=== PATIENT | male | born 1930 | race Caucasian/White ===

== ENCOUNTER 2018-05-11 13:00 | Outpatient (RCR) | payer MEDICARE, BC ==
[2013-01-03 13:35] VITALS: BP 157/67
[~2018-05-11 13:00] MED LIST: ADVAIR DISKUS 51 DSK IH; ALLOPURINOL100 MG PO; AVODART 0.5MG0.5 MG PO; CIPRO 500MG TA500 MG PO; DILTIAZEM240 M1 PO; FLOMAX0.4 MG PO; FLONASE0.05 MG/AC NS; MUCINEX 60600 MG/TA1 PO; SPIRIVA HANDIH18 MCG IH; ST. JOSEPH81 M2 PO; VENTOLIN0.09 MG IH; ZOCOR 10MG10 MG PO; [UNRECOGNIZED DRUG - OTHER] OP
== END 2018-05-11 13:30 | disposition home or self-care (01) ==
LOC: PT 13:00
DX: M25.561 Pain in right knee (principal); G89.29 Other chronic pain; M23.51 Chronic instability of knee, right knee
CPT/HCPCS: G8978-GP; G8979-GP

== ENCOUNTER → 2019-02-02 | Day surgery (SDC) | payer MEDICARE, BC ==
[2013-01-03 13:35] VITALS: BP 157/67
== END | disposition home or self-care (01) ==
LOC: MSO 10:23
DX: H25.12 Age-related nuclear cataract, left eye (principal); Z79.01 Long term (current) use of anticoagulants; Z79.899 Other long term (current) drug therapy; Z79.82 Long term (current) use of aspirin; Z95.0 Presence of cardiac pacemaker; Z95.828 Presence of other vascular implants and grafts; I48.91 Unspecified atrial fibrillation; J44.9 Chronic obstructive pulmonary disease, unspecified; Z87.891 Personal history of nicotine dependence
CPT/HCPCS: 00142; J0171; J2250; J2370; J3010; V2632

== ENCOUNTER 2019-03-18 12:50 | Inpatient (IN) | payer MEDICARE, BC ==
[~2019-03-18] VITALS: Ht 180.3 cm; Wt 76.3 kg
[2019-03-18] MEDS ORDERED: ASCORBIC ACID500 M3 PO (13:23)
[2019-03-18] MEDS ORDERED: CARVEDILOL12.5 MG PO (13:24)
[2019-03-18] MEDS ORDERED: ASPIR LOW81 MG PO (13:24)
[2019-03-18] MEDS ORDERED: FERROUS GLUCON240 MG PO (13:25)
[2019-03-18] MEDS ORDERED: PHARMASSURE FO0.4 MG PO (13:26)
[2019-03-18] MEDS ORDERED: NORCO 325 MG-51 TA1 PO (13:27)
[2019-03-18] MEDS ORDERED: BACTRIM DS TAB1 EACH PO (13:28)
[2019-03-18] MEDS ORDERED: NORVASC 10MG10 MG PO (13:29)
[2019-03-18] MEDS ORDERED: COUMADIN 22.5 MG/TAB PO (13:29)
[2019-03-18] MEDS ORDERED: OXYCODONE HYDROC5 M1 PO (13:30)
[2019-03-18 13:33] VITALS: BP 119/58
[2019-03-18 15:28] VITALS: BP 106/61
[2019-03-18 17:05] LABS: HEMATOCRIT 34.6 % (42.0-52.0); MEAN CELL VOLUME 96 fl (78-100); MEAN CORPUSCULAR HEMOGLOBIN 31 pg (27-31); MEAN CORPUSCULAR HGB CONC 32 g/dL (33-37); MEAN PLATELET VOLUME 11.8 fl (7.4-10.4); PLATELET COUNT 147 K/mm3 (130-400); RED BLOOD COUNT 3.61 M/mm3 (4.20-5.60); RED CELL DISTRIBUTION WIDTH 15.1 % (11.5-14.5); WHITE BLOOD COUNT 12.6 K/mm3 (4.8-10.8)
[2019-03-18 17:09] LABS: ALBUMIN 3.3 g/dL (3.4-4.8)
[2019-03-18 17:10] LABS: POTASSIUM 5.3 mmol/L (3.5-5.1)
[2019-03-18 17:11] LABS: CALCIUM 8.6 mg/dL (8.3-10.5)
[2019-03-18 17:12] LABS: TOTAL PROTEIN 6.8 g/dL (6.2-8.1)
[2019-03-18 17:14] LABS: TOTAL BILIRUBIN 0.6 mg/dL (0.2-1.2)
[2019-03-18 17:24] LABS: LYMPHOCYTE 7 % (20-51); MONOCYTE 31 % (3-10); NEUTROPHILS 61 % (42-75)
[2019-03-18 18:19] LABS: D-DIMER 1.61 mg/L FEU (0.15-0.50)
[2019-03-18 18:40] VITALS: BP 109/65
[2019-03-19 06:06] VITALS: BP 122/61
[2019-03-19 07:28] LABS: HEMATOCRIT 34.4 % (42.0-52.0); HEMOGLOBIN 10.8 g/dL (13.5-18.0); MEAN CELL VOLUME 95 fl (78-100); MEAN CORPUSCULAR HEMOGLOBIN 30 pg (27-31); MEAN CORPUSCULAR HGB CONC 31 g/dL (33-37); MEAN PLATELET VOLUME 10.9 fl (7.4-10.4); PLATELET COUNT 151 K/mm3 (130-400); RED BLOOD COUNT 3.61 M/mm3 (4.20-5.60); RED CELL DISTRIBUTION WIDTH 15.2 % (11.5-14.5); WHITE BLOOD COUNT 10.4 K/mm3 (4.8-10.8)
[2019-03-19 07:38] LABS: ALBUMIN 3.3 g/dL (3.4-4.8)
[2019-03-19 07:39] LABS: POTASSIUM 4.8 mmol/L (3.5-5.1)
[2019-03-19 07:40] LABS: CALCIUM 8.7 mg/dL (8.3-10.5)
[2019-03-19 07:41] LABS: TOTAL PROTEIN 6.9 g/dL (6.2-8.1)
[2019-03-19 07:43] LABS: TOTAL BILIRUBIN 0.9 mg/dL (0.2-1.2)
[2019-03-19 07:48] LABS: LYMPHOCYTE 10 % (20-51); MONOCYTE 15 % (3-10); NEUTROPHILS 74 % (42-75)
[2019-03-19 08:11] LABS: URINE APPEARANCE CLEAR; URINE BILIRUBIN NEGATIVE (NEGATIVE); URINE BLOOD 50 ery/uL (NEGATIVE); URINE COLOR YELLOW; URINE GLUCOSE NEGATIVE (NEGATIVE); URINE KETONE NEGATIVE (NEGATIVE); URINE LEUKOCYTE ESTERASE NEGATIVE (NEGATIVE); URINE NITRATE NEGATIVE (NEGATIVE); URINE PROTEIN(semi-quant) TRACE mg/dL (NEGATIVE); URINE UROBILINOGEN NORMAL (NORMAL); URINE WBC 0-1 /hpf (0-3)
[2019-03-19 18:37] VITALS: BP 110/62
[2019-03-20 06:12] VITALS: BP 107/58
[2019-03-20 09:09] LABS: POTASSIUM 4.7 mmol/L (3.5-5.1)
[2019-03-20 09:11] LABS: CALCIUM 8.7 mg/dL (8.3-10.5)
[2019-03-20 09:23] LABS: PROTHROMBIN TIME 29.6 SECONDS (9.0-12.0)
[2019-03-20 18:44] VITALS: BP 104/64
[2019-03-21 06:01] VITALS: BP 119/58
[2019-03-21 07:48] LABS: PROTHROMBIN TIME 35.1 SECONDS (9.0-12.0)
[2019-03-21 18:55] VITALS: BP 111/73
[2019-03-22 06:16] VITALS: BP 126/73
[2019-03-22 07:09] LABS: HEMATOCRIT 34.6 % (42.0-52.0); MEAN CELL VOLUME 96 fl (78-100); MEAN CORPUSCULAR HEMOGLOBIN 31 pg (27-31); MEAN CORPUSCULAR HGB CONC 32 g/dL (33-37); MEAN PLATELET VOLUME 11.2 fl (7.4-10.4); PLATELET COUNT 206 K/mm3 (130-400)
[2019-03-22 07:43] LABS: LYMPHOCYTE 18 % (20-51); MONOCYTE 29 % (3-10); NEUTROPHILS 51 % (42-75); POLYCHROMASIA 1+
[2019-03-22 17:58] VITALS: BP 129/54
[2019-03-23 06:20] VITALS: BP 126/64
[2019-03-23 12:16] LABS: PROTHROMBIN TIME 29.5 SECONDS (9.0-12.0)
[2019-03-23 18:14] VITALS: BP 115/57
[2019-03-24 06:22] VITALS: BP 129/68
[2019-03-24 06:40] LABS: HEMATOCRIT 33.2 % (42.0-52.0); HEMOGLOBIN 10.4 g/dL (13.5-18.0); MEAN CELL VOLUME 97 fl (78-100); MEAN CORPUSCULAR HEMOGLOBIN 30 pg (27-31); MEAN CORPUSCULAR HGB CONC 31 g/dL (33-37); MEAN PLATELET VOLUME 10.9 fl (7.4-10.4); PLATELET COUNT 223 K/mm3 (130-400); RED BLOOD COUNT 3.44 M/mm3 (4.20-5.60); RED CELL DISTRIBUTION WIDTH 14.9 % (11.5-14.5); WHITE BLOOD COUNT 7.8 K/mm3 (4.8-10.8)
[2019-03-24 06:48] LABS: POTASSIUM 4.1 mmol/L (3.5-5.1)
[2019-03-24 06:49] LABS: CALCIUM 8.4 mg/dL (8.3-10.5); PROTHROMBIN TIME 22.8 SECONDS (9.0-12.0)
[2019-03-24 06:50] LABS: TOTAL PROTEIN 6.7 g/dL (6.2-8.1)
[2019-03-24 06:52] LABS: TOTAL BILIRUBIN 0.8 mg/dL (0.2-1.2)
[2019-03-24 06:54] LABS: BAND 1 % (0-10); LYMPHOCYTE 22 % (20-51); MONOCYTE 19 % (3-10); NEUTROPHILS 57 % (42-75)
[2019-03-24 18:22] VITALS: BP 109/59
[2019-03-25 06:22] VITALS: BP 103/56
[2019-03-25 19:08] VITALS: BP 97/53
[2019-03-26 06:16] VITALS: BP 143/69
[2019-03-26 09:06] LABS: CALCIUM 8.6 mg/dL (8.3-10.5)
[2019-03-26 10:44] LABS: PROTHROMBIN TIME 22.2 SECONDS (9.0-12.0)
[2019-03-26 18:20] VITALS: BP 108/64
[2019-03-27 06:33] VITALS: BP 115/54
[2019-03-27 19:47] VITALS: BP 109/67
[2019-03-28 06:20] VITALS: BP 105/59
[2019-03-28 17:46] VITALS: BP 111/55
[2019-03-29 06:22] VITALS: BP 121/63
[2019-03-29 09:06] LABS: PROTHROMBIN TIME 27.6 SECONDS (9.0-12.0)
[2019-03-29 18:31] VITALS: BP 104/55
[2019-03-30 06:21] VITALS: BP 109/61
[2019-03-30 19:00] VITALS: BP 110/47
[2019-03-31 06:13] LABS: PROTHROMBIN TIME 27.5 SECONDS (9.0-12.0)
[2019-03-31 06:25] VITALS: BP 121/68
[2019-03-31 17:07] VITALS: BP 113/63
[2019-03-31 18:06] VITALS: BP 93/57
[2019-04-01 06:32] VITALS: BP 115/53
[2019-04-01 13:27] LABS: HEMATOCRIT 36.9 % (42.0-52.0); HEMOGLOBIN 11.1 g/dL (13.5-18.0); MEAN CELL VOLUME 98 fl (78-100); MEAN CORPUSCULAR HEMOGLOBIN 30 pg (27-31); MEAN CORPUSCULAR HGB CONC 30 g/dL (33-37); MEAN PLATELET VOLUME 11.2 fl (7.4-10.4); PLATELET COUNT 237 K/mm3 (130-400); RED BLOOD COUNT 3.76 M/mm3 (4.20-5.60); RED CELL DISTRIBUTION WIDTH 15.4 % (11.5-14.5); WHITE BLOOD COUNT 6.4 K/mm3 (4.8-10.8)
[2019-04-01 13:32] LABS: CALCIUM 8.8 mg/dL (8.3-10.5)
[2019-04-01 14:48] LABS: LYMPHOCYTE 17 % (20-51); MONOCYTE 13 % (3-10); NEUTROPHILS 69 % (42-75)
[2019-04-01 17:21] VITALS: BP 115/70
[2019-04-01 18:25] VITALS: BP 121/69
[2019-04-02 06:25] VITALS: BP 119/74
[2019-04-02 18:04] VITALS: BP 123/77
[2019-04-03 06:18] VITALS: BP 102/63
[2019-04-03 17:05] VITALS: BP 126/70
[2019-04-04 06:19] VITALS: BP 110/62
[2019-04-04 17:11] VITALS: BP 128/51
[2019-04-05 06:41] VITALS: BP 105/60
[2019-04-05 14:16] LABS: HEMATOCRIT 38.1 % (42.0-52.0); HEMOGLOBIN 11.5 g/dL (13.5-18.0); MEAN CELL VOLUME 98 fl (78-100); MEAN CORPUSCULAR HEMOGLOBIN 30 pg (27-31); MEAN CORPUSCULAR HGB CONC 30 g/dL (33-37); MEAN PLATELET VOLUME 10.5 fl (7.4-10.4); PLATELET COUNT 242 K/mm3 (130-400); RED BLOOD COUNT 3.89 M/mm3 (4.20-5.60); RED CELL DISTRIBUTION WIDTH 15.8 % (11.5-14.5); WHITE BLOOD COUNT 5.5 K/mm3 (4.8-10.8)
[2019-04-05 14:21] LABS: POTASSIUM 4.1 mmol/L (3.5-5.1)
[2019-04-05 14:22] LABS: CALCIUM 8.7 mg/dL (8.3-10.5)
[2019-04-05 14:54] LABS: LYMPHOCYTE 30 % (20-51); MONOCYTE 20 % (3-10); NEUTROPHILS 50 % (42-75)
[2019-04-05 14:55] LABS: HYPOCHROMIA 2+
[2019-04-05 18:06] VITALS: BP 105/50
[2019-04-06 06:11] VITALS: BP 118/68
[2019-04-06 10:27] LABS: PROTHROMBIN TIME 25.7 SECONDS (9.0-12.0)
[2019-04-06 19:14] VITALS: BP 111/85
[2019-04-07 06:08] VITALS: BP 120/67
[2019-04-07 18:22] VITALS: BP 123/68
[2019-04-08 06:23] VITALS: BP 117/65
[2019-04-08 18:45] VITALS: BP 104/64
[2019-04-09 06:25] VITALS: BP 111/85
[2019-04-09 18:05] VITALS: BP 114/67
[2019-04-10 06:27] VITALS: BP 118/73
[2019-04-10 19:09] VITALS: BP 139/72
[2019-04-11 06:24] VITALS: BP 114/57
[2019-04-11 18:32] VITALS: BP 101/65
[2019-04-12 06:26] VITALS: BP 123/67
[2019-04-12 17:57] VITALS: BP 101/52
[2019-04-13 06:16] VITALS: BP 112/61
[2019-04-13 08:02] LABS: POTASSIUM 3.7 mmol/L (3.5-5.1)
[2019-04-13 08:04] LABS: CALCIUM 8.8 mg/dL (8.3-10.5)
[2019-04-13 08:25] LABS: PROTHROMBIN TIME 23.6 SECONDS (9.0-12.0)
[2019-04-13] MEDS ORDERED: ACETAMINOPHEN325 M1 PO (08:44)
[2019-04-13] MEDS ORDERED: NORCO 325 MG-51 TA1 PO (08:48)
[2019-04-13] MEDS ORDERED: DOCUSATE SOD100 MG PO (08:49)
[2019-04-13] MEDS ORDERED: FUROSEMIDE40 MG PO (08:56)
[2019-04-13 08:57] VITALS: BP 107/64; BP 170/64
[2019-04-13] MEDS ORDERED: COUMADIN 1MG1 MG/TAB PO (09:02)
== END 2019-04-13 14:45 | disposition home health service (06) | DRG 559 ==
LOC: MED/SURG 12:50
PROVIDERS: Family Medicine; Nurse Practitioner; Nurse Practitioner Family; Physician Assistant; ADMIT Nurse Practitioner Primary Care
DX: Z47.1 Aftercare following joint replacement surgery (principal); I50.31 Acute diastolic (congestive) heart failure; R53.81 Other malaise; Z96.651 Presence of right artificial knee joint; J44.9 Chronic obstructive pulmonary disease, unspecified; I48.91 Unspecified atrial fibrillation; Z95.0 Presence of cardiac pacemaker; Z79.82 Long term (current) use of aspirin; Z79.01 Long term (current) use of anticoagulants; Z87.891 Personal history of nicotine dependence; E87.70 Fluid overload, unspecified; I50.9 Heart failure, unspecified; I11.0 Hypertensive heart disease with heart failure
CPT/HCPCS: J1940

== ENCOUNTER → 2019-05-16 | Outpatient (CLI) | payer MEDICARE, BC ==
[2019-04-13 08:57] VITALS: BP 107/64
[~2019-05-16] MED LIST changes: +ACETAMINOPHEN325 M1 PO; +ASCORBIC ACID500 M3 PO; +ASPIR LOW81 MG PO; +BACTRIM DS TAB1 EACH PO; +CARVEDILOL12.5 MG PO; +COUMADIN 1MG1 MG/TAB PO; +COUMADIN 22.5 MG/TAB PO; +DOCUSATE SOD100 MG PO; +FERROUS GLUCON240 MG PO; +FUROSEMIDE40 MG PO; +NORCO 325 MG-51 TA1 PO; +NORVASC 10MG10 MG PO; +OXYCODONE HYDROC5 M1 PO; +PHARMASSURE FO0.4 MG PO
== END ==
LOC: VAS 16:33 → RAD 16:45
DX: I08.3 Combined rheumatic disorders of mitral, aortic and tricuspid valves (principal); I27.20 Pulmonary hypertension, unspecified; R60.1 Generalized edema; E87.79 Other fluid overload

== ENCOUNTER 2019-08-03 11:15 | Outpatient (RCR) | payer MEDICARE, BC ==
[2019-04-13 08:57] VITALS: BP 107/64
== END 2019-08-03 12:00 | disposition still patient (30) ==
LOC: PT 11:15
DX: M25.561 Pain in right knee (principal); Z96.651 Presence of right artificial knee joint

== ENCOUNTER → 2019-10-28 | Outpatient (CLI) | payer MEDICARE, BC ==
[2019-04-13 08:57] VITALS: BP 107/64
== END ==
LOC: LAB 09:28
DX: Z01.818 Encounter for other preprocedural examination (principal); Z20.828 Contact with and (suspected) exposure to other viral communicable diseases

== ENCOUNTER → 2019-11-02 | Day surgery (SDC) | payer MEDICARE, BC ==
[2019-04-13 08:57] VITALS: BP 107/64
== END ==
LOC: MSO 07:58
DX: H25.12 Age-related nuclear cataract, left eye (principal); I10 Essential (primary) hypertension; I48.91 Unspecified atrial fibrillation; J44.9 Chronic obstructive pulmonary disease, unspecified; Z79.82 Long term (current) use of aspirin; Z79.899 Other long term (current) drug therapy; Z79.01 Long term (current) use of anticoagulants
CPT/HCPCS: 00142; J0171; J2250; J2370; J3010; V2632

== ENCOUNTER 2020-06-10 09:34 | Emergency (ER) | payer MEDICARE, BC ==
[2020-06-10 10:07] LABS: HEMATOCRIT 37.9 % (42.0-52.0); HEMOGLOBIN 11.8 g/dL (13.5-18.0); MEAN CELL VOLUME 90 fl (78-100); MEAN CORPUSCULAR HEMOGLOBIN 28 pg (27-31); MEAN CORPUSCULAR HGB CONC 31 g/dL (33-37); PLATELET COUNT 91 K/mm3 (130-400); RED BLOOD COUNT 4.21 M/mm3 (4.20-5.60); RED CELL DISTRIBUTION WIDTH 15.4 % (11.5-14.5); WHITE BLOOD COUNT 7.4 K/mm3 (4.8-10.8)
[2020-06-10 10:16] LABS: ALBUMIN 3.4 g/dL (3.4-4.8); POTASSIUM 4.1 mmol/L (3.5-5.1)
[2020-06-10 10:18] LABS: CALCIUM 7.6 mg/dL (8.3-10.5)
[2020-06-10 10:19] LABS: TOTAL PROTEIN 6.9 g/dL (6.2-8.1)
[2020-06-10 10:21] LABS: TOTAL BILIRUBIN 1.5 mg/dL (0.2-1.2)
[2020-06-10 10:40] LABS: MEAN PLATELET VOLUME 12.5 fl (7.4-10.4)
[2020-06-10 10:41] LABS: BAND 6 % (0-10); LYMPHOCYTE 7 % (20-51); MONOCYTE 17 % (3-10); NEUTROPHILS 70 % (42-75)
[2020-06-10 10:53] LABS: PROTHROMBIN TIME 28.9 SECONDS (9.0-12.0)
[2020-06-10] MEDS ORDERED: ASPIRIN E.C. 8181 MG PO (12:17)
[2020-06-10] MEDS ORDERED: WARFARIN SODIUM1 MG PO ×2 (12:18)
[2020-06-10] MEDS ORDERED: SIMVASTATIN10 M1 PO (12:19)
[2020-06-10] MEDS ORDERED: CARVEDILOL12.5 MG PO (12:19)
[2020-06-10] MEDS ORDERED: FUROSEMIDE20 MG PO (12:19)
[2020-06-10 12:24] LABS: D-DIMER 3.18 mg/L FEU (0.15-0.50)
[2020-06-10 14:00] VITALS: BP 104/56
== END 2020-06-10 15:00 | disposition home or self-care (01) ==
LOC: ED 09:34
PROVIDERS: Family Medicine
DX: U07.1 COVID-19 (principal); J44.9 Chronic obstructive pulmonary disease, unspecified; Z95.0 Presence of cardiac pacemaker; I48.91 Unspecified atrial fibrillation; Z87.891 Personal history of nicotine dependence; Z86.79 Personal history of other diseases of the circulatory system; Z79.82 Long term (current) use of aspirin; Z79.01 Long term (current) use of anticoagulants
CPT/HCPCS: J0456; J1100; J7030; J7050

== ENCOUNTER 2020-09-18 10:34 | Emergency (ER) | payer MEDICARE, BC ==
[~2020-09-18 10:34] MED LIST changes: +ASPIRIN E.C. 8181 MG PO; +FUROSEMIDE20 MG PO; +SIMVASTATIN10 M1 PO; +WARFARIN SODIUM1 MG PO
[2020-09-18] MEDS ORDERED: JANTOVEN1 MG PO (11:00)
[2020-09-18 11:22] LABS: HEMATOCRIT 33.6 % (42.0-52.0); HEMOGLOBIN 10.2 g/dL (13.5-18.0); MEAN CELL VOLUME 95 fl (78-100); MEAN CORPUSCULAR HEMOGLOBIN 29 pg (27-31); MEAN CORPUSCULAR HGB CONC 30 g/dL (33-37); MEAN PLATELET VOLUME 10.6 fl (7.4-10.4); PLATELET COUNT 178 K/mm3 (130-400); RED BLOOD COUNT 3.54 M/mm3 (4.20-5.60); RED CELL DISTRIBUTION WIDTH 17.4 % (11.5-14.5); WHITE BLOOD COUNT 4.2 K/mm3 (4.8-10.8)
[2020-09-18 11:28] LABS: ALBUMIN 3.3 g/dL (3.4-4.8); POTASSIUM 4.3 mmol/L (3.5-5.1)
[2020-09-18 11:29] LABS: D-DIMER 1.62 mg/L FEU (0.15-0.50); PROTHROMBIN TIME 23.7 SECONDS (9.0-12.0)
[2020-09-18 11:30] LABS: TOTAL PROTEIN 6.4 g/dL (6.2-8.1)
[2020-09-18 11:32] LABS: TOTAL BILIRUBIN 1.1 mg/dL (0.2-1.2)
[2020-09-18] MEDS ORDERED: PROAIR HFA0.09 MG/AC IH (11:46)
[2020-09-18] MEDS ORDERED: RT SPIRIVA INH18 MCG IH (11:46)
[2020-09-18 11:47] LABS: TROPONIN-I 0.03 ng/mL (<0.030)
[2020-09-18] MEDS ORDERED: FLOMAX0.4 MG PO (11:47)
[2020-09-18 11:51] LABS: LYMPHOCYTE 19 % (20-51); MONOCYTE 30 % (3-10); NEUTROPHILS 48 % (42-75)
[2020-09-18 12:17] LABS: URINE APPEARANCE CLOUDY; URINE BLOOD TRACE (NEGATIVE); URINE COLOR YELLOW; URINE GLUCOSE NEGATIVE (NEGATIVE); URINE KETONE NEGATIVE (NEGATIVE); URINE LEUKOCYTE ESTERASE 2+ (NEGATIVE); URINE NITRATE POSITIVE (NEGATIVE); URINE PROTEIN(semi-quant) TRACE mg/dL (NEGATIVE)
[2020-09-18 12:18] LABS: URINE BILIRUBIN NEGATIVE (NEGATIVE); URINE UROBILINOGEN 1 mg/dL (NORMAL); URINE WBC >50 /hpf (0-3)
[2020-09-18 18:18] VITALS: BP 119/64
== END 2020-09-18 18:18 | disposition short-term general hospital (02) ==
LOC: ED 10:34
PROVIDERS: Nurse Practitioner Family
DX: J90 Pleural effusion, not elsewhere classified (principal); N39.0 Urinary tract infection, site not specified; I50.9 Heart failure, unspecified; N18.9 Chronic kidney disease, unspecified; J44.9 Chronic obstructive pulmonary disease, unspecified; I48.91 Unspecified atrial fibrillation; Z20.822 Contact with and (suspected) exposure to COVID-19; Z86.79 Personal history of other diseases of the circulatory system; Z95.0 Presence of cardiac pacemaker; Z87.891 Personal history of nicotine dependence; Z79.1 Long term (current) use of non-steroidal anti-inflammatories (NSAID); Z79.82 Long term (current) use of aspirin; Z79.51 Long term (current) use of inhaled steroids; W19.XXXA Unspecified fall, initial encounter
CPT/HCPCS: J0696; J1940; J7030; Q9967

== ENCOUNTER 2020-09-24 21:46 | Inpatient (IN) | payer MEDICARE, BC ==
[~2020-09-24] VITALS: Ht 180.3 cm; Wt 63.8 kg
[~2020-09-24 21:46] MED LIST changes: +JANTOVEN1 MG PO; +PROAIR HFA0.09 MG/AC IH; +RT SPIRIVA INH18 MCG IH
--- NOTE | 2020-09-25 14:09 | NUR ---
ARRIVES TO FACILITY PER W/C. ORIENT TO ROOM BY MINER PICK.
[2020-09-25 14:21] VITALS: BP 110/68
[2020-09-25] MEDS ORDERED: VENELEX OINTMEN60 GM TOP (15:29)
[2020-09-25] MEDS ORDERED: FUROSEMIDE20 MG PO (15:30)
[2020-09-25] MEDS ORDERED: TRELEGY ELLIPT1 EACH IH (15:30)
--- NOTE | 2020-09-25 15:30 | NUR ---
ADMISSION ASSESSMENT COMPLETE. PATIENT ALERT AND TALKATIVE. ORIENTED. WEARS GLASSES. SPEECH CLEAR. REPORTS FEELING WEAK. FELT SHORT OF BREATH UNTIL APPROX 2 DAYS AGO. RESP EVEN AND UNLABORED ON ROOM AIR. LIVES AT HOME ALONE. DOES HAVE AN UPPER LEVEL TO HIS HOUSE, BUT DOES NOT UTILIZE IT. KEEPS IN CONTACT WITH HIS NIECE BERTA AND SISTER CRYS. HAS TWO STAGE 2 ULCERS PRESENT. PER [facility] REPORT, TREATING WITH VENELEX OINTMENT AND PADDED DRESSING. COCCYX APPEARS RED WITH QUICK BLANCHING; MEAUSRES 7.5CM X 4.8CM. A 0.3CM X 0.2CM OPEN AREA IS NOTED IN THE CENTER OF RED AREA. OPEN SITE HAS A BOATENG WOUND BED WITH WHITE SKIN SURROUNDING. IT IS NOT TENDER, HOWEVER DOES ACHE IF SITTING IN CHAIR FOR TOO LONG. DISCUSS POSITION CHANGES THROUGHOUT DAY TO PREVENT PAIN AND FURTHER SKIN BREAKDOWN. LT LATERAL ANKLE APPEARS WITH A RED AREA MEASURING 3CM X 2CM WITH A WHITE OPEN CENTER THAT MEASURES 0.5CM X 0.6CM. NO ACTIVE DRAINAGE NOTED TO EITHER DRESSING. NEW FOAM DRESSING APPLIED TO COCCYX.
[2020-09-25] MEDS ORDERED: MIDODRINE HCL2.5 MG PO (15:31)
[2020-09-25] MEDS ORDERED: AMIODARONE200 MG PO (15:32)
[2020-09-25] MEDS ORDERED: FLONASE ALLERG9.9 ML NS (15:33)
[2020-09-25] MEDS ORDERED: PHARMASSURE FO0.4 MG PO (15:34)
[2020-09-25] MEDS ORDERED: WARFARIN SODIUM1 MG PO (15:36)
[2020-09-25 17:45] VITALS: BP 113/51
[2020-09-25 17:52] VITALS: BP 92/56
[2020-09-25 20:07] LABS: URINE APPEARANCE CLOUDY; URINE BILIRUBIN NEGATIVE (NEGATIVE); URINE COLOR YELLOW; URINE GLUCOSE NEGATIVE (NEGATIVE); URINE KETONE NEGATIVE (NEGATIVE); URINE NITRATE NEGATIVE (NEGATIVE); URINE PROTEIN(semi-quant) NEGATIVE (NEGATIVE); URINE UROBILINOGEN NORMAL (NORMAL)
[2020-09-25 20:08] LABS: URINE BLOOD NEGATIVE (NEGATIVE); URINE LEUKOCYTE ESTERASE 1+ (NEGATIVE); URINE WBC 16-30 /hpf (0-3)
[2020-09-26 05:37] VITALS: BP 112/65
[2020-09-26 07:09] LABS: HEMOGLOBIN 11.2 g/dL (13.5-18.0); MEAN CELL VOLUME 94 fl (78-100); MEAN CORPUSCULAR HEMOGLOBIN 29 pg (27-31); MEAN CORPUSCULAR HGB CONC 30 g/dL (33-37); MEAN PLATELET VOLUME 11.2 fl (7.4-10.4); PLATELET COUNT 183 K/mm3 (130-400); RED BLOOD COUNT 3.92 M/mm3 (4.20-5.60); RED CELL DISTRIBUTION WIDTH 16.4 % (11.5-14.5); WHITE BLOOD COUNT 4.6 K/mm3 (4.8-10.8)
[2020-09-26 07:21] LABS: EOS # 0.1 (0.04-0.40); EOS % 2.6 % (0.0-4.0); LYMPH# 1.2 (1.50-4.00); MONO # 1.1 (0.20-0.80); NEU # 2.1 (1.40-6.50)
[2020-09-26 07:25] LABS: ALBUMIN 3.3 g/dL (3.4-4.8); POTASSIUM 4.7 mmol/L (3.5-5.1)
[2020-09-26 07:26] LABS: CALCIUM 8.3 mg/dL (8.3-10.5)
[2020-09-26 07:28] LABS: TOTAL PROTEIN 6.9 g/dL (6.2-8.1)
[2020-09-26 07:29] LABS: TOTAL BILIRUBIN 0.6 mg/dL (0.2-1.2)
[2020-09-26 07:33] LABS: LYMPHOCYTE 24 % (20-51); MONOCYTE 22 % (3-10); NEUTROPHILS 52 % (42-75); PROTHROMBIN TIME 23.5 SECONDS (9.0-12.0)
--- NOTE | 2020-09-26 15:43 | NUR ---
Spoke with Marissa today regarding his social history. Found that he currently has a life alert system that is managed by the via [employer] in [place]. Called [employer] and left voice message.
[2020-09-26 17:36] VITALS: BP 111/70
--- NOTE | 2020-09-26 19:15 | NUR ---
Report received from Monica Alfaro.
--- NOTE | 2020-09-26 20:30 | NUR ---
HS meds all reviewed and given. Denies pain at this time. Alert and oriented x 4. Wound gel applied to buttucks wound and wound left ankle. No drainage. Transfers without problems to bed. Declines brushing teeth at this time. o2 applied 1 lpnc following breathing treatment.
--- NOTE | 2020-09-27 05:30 | NUR ---
Patient awakened for vitals. Uneventful NOC.
--- NOTE | 2020-09-27 05:42 | NUR ---
Patient reports he had a good nights sleep. Denies complaints of this am.
[2020-09-27 05:49] VITALS: BP 107/68
--- NOTE | 2020-09-27 08:22 | NUR ---
Patient transfered from bed to chair with SBA. A&Ox4, O2 @1L, up in chair eating breakfast. Medication administered. Discussed goals of care with patient. Patient understands teaching by making eye contact and asking questions. Questions answered. Will continue to work with physical therapy and ambulate in hallway with nursing staff. No c/o pain or discomfort at this time. Call light within reach.
--- NOTE | 2020-09-27 10:03 | NUR ---
Verbal order from Balbina Keller APRN to discontinue hall monitor. Telemetry removed at this time.
[2020-09-27 17:54] VITALS: BP 95/58
--- NOTE | 2020-09-27 19:15 | NUR ---
Report received from Valeria ATKINS.
--- NOTE | 2020-09-27 22:20 | NUR ---
Patient awakened for HS meds. All reviewed and given. Mepilex dressing to coccyx and outer left ankle CDI. Denies needs at this time. Pleasant.
--- NOTE | 2020-09-28 04:29 | NUR ---
Patient has been resting in bed on left side with eyes closed. Respirations with ease.
--- NOTE | 2020-09-28 05:30 | NUR ---
Patient awakened for am med and vitals. Smiles, pleasant. States he slept well O2 on 1 LPNC. Urinal emptied.
[2020-09-28 05:45] VITALS: BP 123/75
--- NOTE | 2020-09-28 08:30 | NUR ---
Pt sitting in the recliner drinking coffee when entering the room. Pt reports no pain or concerns at this time. IV shows no signs of complications. Lung sounds clear. Will continue to monitor.
--- NOTE | 2020-09-28 09:00 | NUR ---
Pt ambulating the osman with therapy.
--- NOTE | 2020-09-28 10:15 | NUR ---
Pt ambulating the halls SBA with walker and gaitbelt with no concerns.
--- NOTE | 2020-09-28 11:33 | NUR ---
OT in room with pt.
--- NOTE | 2020-09-28 12:44 | NUR ---
Pt ambulating in osman with staff with no concerns.
[2020-09-28 17:13] VITALS: BP 97/65
[2020-09-28 18:01] VITALS: BP 97/65
--- NOTE | 2020-09-28 19:25 | NUR ---
Report received from Carmen ATKINS. Patient up in recliner. A/O x4. Oxygen in place at 1L/NC. Denies pain. Assessment completed. Denies questions wants or needs at this time. Ready for bed. DIRECTOR SAFETY COUNCIL notified.
--- NOTE | 2020-09-28 19:55 | NUR ---
COUNTER SALES REPRESENTATIVE in to assist with HS cares. Reports patient was "soaked". Reports has urgency. Ambulated in hallways with COUNTER SALES REPRESENTATIVE. COUNTER SALES REPRESENTATIVE reports normal, steady gait with walker. Tolerated well. Assisted to bed and positioned for comfort.
--- NOTE | 2020-09-29 05:13 | NUR ---
Patient rested well all night. No incontinence. Used urinal. Denies pain. AM medications taken. Denies wants or needs.
[2020-09-29 06:03] VITALS: BP 112/63
--- NOTE | 2020-09-29 07:20 | NUR ---
REPORT RECEIVED FROM BESSIE SWEET LPN
--- NOTE | 2020-09-29 07:30 | NUR ---
Report to Giulia ATKINS.
--- NOTE | 2020-09-29 09:30 | NUR ---
PATIENT'S OXYGEN ON AT O.5 L NC. OXYGEN REMOVED OXYGEN RECHECK WAS 92% ON ROOM AIR. PATIENT AMBULATED IN [place] WITH DIETARY TECH. DIETARY TECH REPORTS PATIENT BRIEFLY DROPPED TO 84% NO LOWER. RECOVERED ONCE AT REST QUICKLY SP02 BACK UP TO 92%. PATIENT DENIED FEELING SHORT OF BREATH WHILE WALKING. STATES "NO I ACTUALLY FELT REALLY GOOD THAT WALK" PATIENT REMAINS ON ROOM AIR.
--- NOTE | 2020-09-29 11:00 | NUR ---
PATIENT'S SP02 96% ON ROOM AIR. PATIENT AMBULATED IN [place] WITH INSTALLATION DRAFTER. INSTALLATION DRAFTER REPORTS LOWEST SP02 DROPPED TO WAS 88% AND PATIENT DID WELL DURING WALK AND DENIES SHORTNESS OF BRAETH. REPORTS THAT SP02 WENT BACK UP TO 94% ONCE AT REST.
--- NOTE | 2020-09-29 15:30 | NUR ---
PATIENT AMBULATES IN [place] WITH CLOTH DOFFER ON ROOM AIR. PATIENT'S SP02 LOWEST IT WENT DURING WALK WAS 94%.
[2020-09-29 17:15] VITALS: BP 118/72
--- NOTE | 2020-09-30 10:00 | NUR ---
dressings to coccyx changed at this time. patient's wound healing. has approximately 2mm scabbed area that is surrounding by pink healed tissue. there is some peeling dry skin. cleansed with sterile saline. venelex applied per order. skin prep applied to surrounding skin. sacrum mepilex applied to area. patient's wound to left lateral ankle redness surrounding and lessened. patient has open area with 0.5x0.5 cm area that has white wound bed. has very scant amount of pink colored tissue surrounding. noted that patient has area to left lateral foot. area is swollen, red/purple discolorate approximately quater sized area has pinpoint area in the center that is clear dela cruz possibly fluid filled. patient states "yeah that foot has been hurting me more especially that spot your touching i don't know what i did there or why i keep getting these sores" venelex applied to wounds per order and covered with mepilex foam. inspector receiving's and patient instructed to place rolled up blanket on left lateral leg while in bed to avoid patient's left from rolling out and applying pressure.
[2020-09-30 17:30] VITALS: BP 100/62
--- NOTE | 2020-09-30 19:30 | NUR ---
Report received from Giulia ATKINS. Patient resting supine in bed. Watching TV. SCD's in place to BLE. Visitor just left. A/O x4. Denies pain. On RA, denies SOA at rest, states does have some with exertion, but "not bad". Dressings to L lateral ankle and coccyx CDI. Assessment completed. Bed alarm on. Call light in reach. Denies questions, wants or needs.
--- NOTE | 2020-09-30 20:20 | NUR ---
HS medications taken without difficulty. SCD's in place to BLE. Denies wants or needs.
--- NOTE | 2020-09-30 21:30 | NUR ---
Spot check SPO2 93% on RA.
--- NOTE | 2020-10-01 00:27 | NUR ---
Rests on L side with eyes closed. Respirations even and non-labored. No signs of pain or distress.
--- NOTE | 2020-10-01 02:01 | NUR ---
Resting quietly with no distress. Spot check SPO2 97% on RA.
--- NOTE | 2020-10-01 05:54 | NUR ---
Patient rested well all night. AM medications taken. Denies wants or needs. SAO2 spot checked through the night and above 90 on RA.
[2020-10-01 05:56] VITALS: BP 107/67
--- NOTE | 2020-10-01 17:00 | NUR ---
patient's dressings to left lateral foot changed. patient reports that foot has been more sore today. left lateral ankle wound redness to surrounding area appears to be lessening. open area continues to have white wound bed. mepilex foam covering area to left lateral foot removed. area continues to be purple/red in color seems more purple today. swollen area/bump protruding more from foot today. dela cruz area in middle bigger in size approximately 3mm round looks as though area is almost coming to a head. area tender to touch. hydrocolloid dressings applied to both areas on left foot.
[2020-10-01 18:00] VITALS: BP 97/58
--- NOTE | 2020-10-01 19:22 | NUR ---
Report received from Giulia ATKINS. Up in recliner. A/O x4. Denies pain. On RA, denies SOA. No signs of pain or distress. Assessment completed. Encouraged to increase water intake. Gave grape juice per request at this time. RN in to dress L foot x2. Call light in reach.
--- NOTE | 2020-10-01 23:10 | NUR ---
Rests with eyes closed. No signs of pain or distress. SCD's in place to BLE.
--- NOTE | 2020-10-02 05:30 | NUR ---
Rested well all shift. Uses urinal in bed. No incontinence this shift.
[2020-10-02 05:41] VITALS: BP 107/63
--- NOTE | 2020-10-02 07:11 | NUR ---
Report to Ruslan ATKINS.
--- NOTE | 2020-10-02 07:24 | NUR ---
Report recieved by MILLY Barnett
--- NOTE | 2020-10-02 09:26 | NUR ---
Patient resting in chair. Ambulated from bed to bathroom. Completed ADLs with therapy and ambulated back to chair. c/o mild discomfort in left foot. Mabel PRN pain medication at this time. A&Ox4, RA, congestive cough at baseline with hx of post nasal drip. Bed alarm on, call light within reach.
--- NOTE | 2020-10-02 13:30 | NUR ---
Therapy requesting to work with patient through this week. Will re-evaluate next. Will continue to work on increasing strength, use of stairs and ambulating with cane.
[2020-10-02 15:02] LABS: PROTHROMBIN TIME 23.6 SECONDS (9.0-12.0)
[2020-10-02 17:48] VITALS: BP 112/63
--- NOTE | 2020-10-02 19:00 | NUR ---
Report received from Patricia ATKINS.
--- NOTE | 2020-10-02 19:45 | NUR ---
Patient incontinent of small amount of urine and ambulates to the bathroom with walker. Attends changed. Rests self back in bed. Dressings to coccyx and left ankle CDI. Left hip appears to have scar with very small pink center/blanches. Rubin hose removed and scd's applied. Denies shortness of breath. Alert and oriented x4. Pleasant.
--- NOTE | 2020-10-03 01:26 | NUR ---
Patient awake and repositions self from left side more to back. Denies pain. States he's been resting well.
[2020-10-03 06:10] VITALS: BP 116/69
[2020-10-03 06:35] LABS: HEMATOCRIT 34.1 % (42.0-52.0); HEMOGLOBIN 10.5 g/dL (13.5-18.0); MEAN CELL VOLUME 94 fl (78-100); MEAN CORPUSCULAR HEMOGLOBIN 29 pg (27-31); MEAN CORPUSCULAR HGB CONC 31 g/dL (33-37); MEAN PLATELET VOLUME 10.3 fl (7.4-10.4); PLATELET COUNT 189 K/mm3 (130-400); RED BLOOD COUNT 3.64 M/mm3 (4.20-5.60); RED CELL DISTRIBUTION WIDTH 15.6 % (11.5-14.5); WHITE BLOOD COUNT 4.2 K/mm3 (4.8-10.8)
--- NOTE | 2020-10-03 06:44 | NUR ---
Patient rests in bed with eyes closed. Respirations with ease.
[2020-10-03 06:58] LABS: POTASSIUM 4.3 mmol/L (3.5-5.1)
[2020-10-03 06:59] LABS: CALCIUM 8.1 mg/dL (8.3-10.5)
--- NOTE | 2020-10-03 07:21 | NUR ---
REPORT RECEIVED FROM EVANS ATKINS. PT SITING IN HIS RECLINER AT BEDSIDE. HE DENIES ANY PAIN AT THIS TIME. HE DENIES ANY NEEDS AT THIS TIME.
[2020-10-03 07:24] LABS: BAND 1 % (0-10); LYMPHOCYTE 24 % (20-51); MONOCYTE 24 % (3-10); NEUTROPHILS 48 % (42-75)
--- NOTE | 2020-10-03 10:54 | NUR ---
PATIENT WANTED TO LAY DOWN DUE TO TIRED AFTER WORKING DOWNSTAIRS IN THERAPY. DRESSING CHANGED TO COCCYX AREA WITH VENELAX APPLIED.
[2020-10-03 16:17] VITALS: BP 118/74
--- NOTE | 2020-10-03 18:57 | NUR ---
REPORT GIVEN TO EVANS ATKINS
--- NOTE | 2020-10-03 19:00 | NUR ---
Report received from Monica ATKINS.
--- NOTE | 2020-10-03 20:15 | NUR ---
HS meds all reviewed and given. Denies pain at this time. Ambulates with steady gait to the bathroom and assisted to dress in gown for HS. Right heel boggy/no pain and reddened/blanches. Heels floated.
--- NOTE | 2020-10-04 01:30 | NUR ---
Patient has been resting quietly with eyes closed.
--- NOTE | 2020-10-04 05:00 | NUR ---
Patient has been resting with eyes closed. Awakened for vitals and med. Denies needs. Cut from shaving on left inner cheek bleeding slightly/dried blood. Patient washes face with bath wipe.
[2020-10-04 05:48] VITALS: BP 123/73
--- NOTE | 2020-10-04 07:03 | NUR ---
Report recieved by MILLY Sotelo
--- NOTE | 2020-10-04 08:36 | NUR ---
Patient resting in chair. A&Ox4. no c/o of pain or discomfort. Reading newsletter. Ate 100% of breakfast. Call light within reach.
[2020-10-04 16:20] VITALS: BP 104/63
--- NOTE | 2020-10-04 19:00 | NUR ---
Report received from Patricia Tejada RN. Pt resting in bed, awake and a/o x 3.
--- NOTE | 2020-10-04 22:30 | NUR ---
Tolerated breathing treatments without difficulty. Pulse ox 94% on room air. Pulse 64.
[2020-10-05 05:47] VITALS: BP 113/63
--- NOTE | 2020-10-05 08:08 | NUR ---
Patient up in chair eating breakfast. A&Ox4. c/o pain at left heel. Bandge removed during night. Wound diameter 1cm, dark red, healing tissue with defined boarder. No slough present. Radha-wound red, blanchable with 3cm diameter. Pain relieved with new, clean dressing. No other c/o discomfort. Call light within reach.
[2020-10-05 17:19] VITALS: BP 93/55
[2020-10-06 05:43] VITALS: BP 136/81
--- NOTE | 2020-10-06 07:11 | NUR ---
REPORT GIVEN TO ZAIRA ATKINS
--- NOTE | 2020-10-06 07:32 | NUR ---
REPORT RECEIVED FROM KALEB ATKINS.
--- NOTE | 2020-10-06 08:25 | NUR ---
TALKATIVE AND PLEASANT. DENIES DISCOMFORT. DRESSING TO LT LATERAL ANKLE WOUND IS NOTED TO BE CURLED UP AND NO IN CORRECT LOCATION. ALSO NOTE A SCABBED AREA TO MID LATERAL LT FOOT. BOTH SITES APPEAR WITH SCAB INTACT TO CENTER WITH PINK SKIN SURROUNDING. APPEAR TO BE HEALING WELL. APPLY SKIN PREP TO BOTH SITES AND COVER WITH MEPILEX FOAM PAD TO PROTECT FROM PRESSURE. PATIENT REPORTS TENDERNESS TO LT LATERAL ANKLE WITH TOUCH. COCCYX DRESSING REMAINS INTACT; PATIENT REPORTS DECREASED DISCOMFORT TO SITE. REMAINS ON ROOM AIR. RESP EVEN AND UNLABORED.
[2020-10-06 17:06] VITALS: BP 111/71
--- NOTE | 2020-10-06 17:47 | NUR ---
REPORT PROVIDED TO BESSIE ALMONTE.
--- NOTE | 2020-10-06 18:22 | NUR ---
Report received from Cece ATKINS.Patient ambulated in the hallway with RADIOTELEGRAPHER, gaitbelt and walker. Slow steady gait, tolerated well. Back to recliner. This nurse in to do shift assessment. A/O x4. Denies pain. Denies SOA but states does have some with ambulation. Dressings in place to L lateral foot and ankle. Denies wants or needs at this time.
--- NOTE | 2020-10-06 20:01 | NUR ---
Assisted to BR and with HS cares by GAUGE MAKER APPRENTICE. Incontinent of urine, voids in toilet and had small BM. Assisted to bed. HS medications taken whole without difficulty. Nebulizer tx taken. Bed alarm on. Call light in reach.
--- NOTE | 2020-10-07 05:10 | NUR ---
Staff in to obtain V/S and AM medications. Denies pain. Rested well. Bed alarm on. Call light in reach.
[2020-10-07 06:01] VITALS: BP 125/69
--- NOTE | 2020-10-07 07:13 | NUR ---
Report to Elizabeth ATKINS.
--- NOTE | 2020-10-07 08:00 | NUR ---
Report recieved form MILLY Barnett
--- NOTE | 2020-10-07 11:00 | NUR ---
Patient ambulating in osman with CROP PULLER.
[2020-10-07 15:52] VITALS: BP 101/64
--- NOTE | 2020-10-07 20:10 | NUR ---
Report received from Elizabeth ATKINS. Patient sitting up in recliner. A/O x4. [place]. Denies pain. Denies SOB. states has a chronic cough ever since sinus surgery. Assessment completed. Foam dressing x2 CDI to L foot and L lateral ankle. Scheduled HS medications taken whole without difficulty. GALLERY DIRECTOR in to assist with HS cares and ambulate in hallway before bed.
--- NOTE | 2020-10-08 00:25 | NUR ---
Rests with eyes closed. No signs of pain or distress. Uses urinal at bedside. Bed alarm on, Call light in reach.
--- NOTE | 2020-10-08 05:06 | NUR ---
AM medications taken. Denies pain. Slept well. VSS. Denies further wants or needs.
[2020-10-08 05:57] VITALS: BP 120/74
--- NOTE | 2020-10-08 07:15 | NUR ---
Report to Giulia ATKINS.
--- NOTE | 2020-10-08 07:20 | NUR ---
REPORT RECEIVED FROM BESSIE SWEET LPN
--- NOTE | 2020-10-08 09:00 | NUR ---
PATIENT SITING UP IN RECLINER. SHIFT ASSESSMENT COMPLETE. PATIENT ALERT AND ORIENTED X4. PATIENT DENIES ANY PAIN OR DISCOMFORTS AT THIS TIME. REPORTS HAVING SOME SHORTNESS OF BREATH SINCE RETURNING FROM WALKING WITH THERAPY. STATES "WELL IT HAPPENS WHEN I WALK LONG DISTANCES ONCE I'VE SAT FOR A BIT IT'LL GO AWAY" REPORTS THAT SHORTNESS OF BREATH IS UNCHANGED FROM BASELINE. DOES HAVE WET PRODUCIVE OCCASIONAL COUGH. PATIENT'S WOUND TO LEFT LATERAL ANKLE HAS MEPILEX FOAM IN PLACE FOAM REMOVED. PATIENT HAS SCAB COVERING WOUND BUT WOUND BED UNDER SCAB IS WHITE. PATIENT'S SURROUNDING SKIN SLIGHTLY RED. IMPROVED. PATIENT CONTINUES TO HAVE RAISED AREA TO LEFT LATERAL FOOT WITH BOATENG COLORED SCAB. REDNESS AND SWELLING DECREASED FROM LAST TIME NURSE CARED FOR PATIENT. VENELEX APPLIED TO LEFT LATERAL FOOT. LEFT LATERAL ANKLE CLEANSED WITH STERILE SALINE, SKIN PREP APPLIED, AND HYDROCOLLOID DRESSING APPLIED TO WOUND. TERRICryptonator'S CALL LIGHT WITHIN REACH. CHAIR ALARM ON.
--- NOTE | 2020-10-08 15:24 | NUR ---
contacted edwige melton nurse to follow up on getting appt scheduled with thursday while in outpaitent clinic. edwige reports that is in the or all day today. reports that he has to wait for the okay from since he is a [facility] patient before they can schedule with sybil. asked if appt could be scheduled while waiting for call back just to have it done so it doesn't get missed or to make sure there is an opening for paitent and schedule doesn't fill. edwige states "i'm not that worried about it. it should be fine. i just have to get the okay. i'm not worried about it sybil should be able to see him and he should have time in his schedule so it should be fine" will call back when answer from [facility].
[2020-10-08 18:13] VITALS: BP 102/57
--- NOTE | 2020-10-08 19:20 | NUR ---
report given to zaida burns lpn
--- NOTE | 2020-10-08 19:56 | NUR ---
Report received from Giulia ATKINS. Patient up in recliner watching TV. A/O x4. Denies pain. Assessment completed. Uses I.S. and pulls 2000 ML x10 reps. States he is ready for bed. CASUALTY UNDERWRITER in to assist with HS cares.
--- NOTE | 2020-10-09 00:12 | NUR ---
Resting quietly. No signs of pain or distress. Using urinal at bedside. Bed alarm on. Call light in reach.
--- NOTE | 2020-10-09 05:06 | NUR ---
AM medications and vital signs obtained. Rested well all shift without complaints. Denies pain or needs. Bed alarm on. Call light in reach.
[2020-10-09 06:14] VITALS: BP 112/66
--- NOTE | 2020-10-09 07:18 | NUR ---
Report to Cece ATKINS.
--- NOTE | 2020-10-09 08:51 | NUR ---
Patient ambulated from chair to shower. With OT for ADLs. No c/o pain or discomfort at this time. OT with patient.
--- NOTE | 2020-10-09 16:56 | NUR ---
Patient ambulated with this nurse and PCT. O2 sat 96% at rest while speaking with staff. When asked if patient has felt short of breathe in the past year, patient states, "many times." He explains he has felt more short of breathe since his knee and eye surgery. He also had oxygen while in the hospital but has never worn it at home. Patient ambulated a distance of 10 feet by walker with an O2 sat of 87%. Patient stood at rest for 1 minute with an O2 of 91%. Ambulated a distance of 10 feet by walker with an O2 of 76%. 2L of oxygen applied at this time. Patient stood at rest 1 minute with O2 91% on 2L. Ambulated a distance of 15 feet by walker with an O2 of 87%. O2 increased to 3L. Patient stood at rest for 1 minute with O2 of 91%. Ambulated a distance of 20 feet by walker with an O2 of 88% on 3L per NC. No c/o SOA. This nurse educated patient on the use of oxygen with exertion. Patient understands teaching by making eye contact and asking questions. Questions answered. Call light within reach. Chair alarm on. Patient resting quietly. Balbina Hunt APRN notified.
[2020-10-09 17:14] VITALS: BP 119/68
[2020-10-09 17:30] LABS: BASO # 0.04 (0.02-0.10); EOS # 0.07 (0.04-0.40); EOS % 1.1 % (0.0-4.0); HEMATOCRIT 35.1 % (42.0-52.0); HEMOGLOBIN 10.8 g/dL (13.5-18.0); LYMPH# 1.11 (1.50-4.00); MEAN CELL VOLUME 93 fl (78-100); MEAN CORPUSCULAR HEMOGLOBIN 29 pg (27-31); MEAN CORPUSCULAR HGB CONC 31 g/dL (33-37); MEAN PLATELET VOLUME 10.5 fl (7.4-10.4); MONO # 1.17 (0.20-0.80); NEU # 3.94 (1.40-6.50); PLATELET COUNT 249 K/mm3 (130-400); RED BLOOD COUNT 3.76 M/mm3 (4.20-5.60); RED CELL DISTRIBUTION WIDTH 15.7 % (11.5-14.5); WHITE BLOOD COUNT 6.4 K/mm3 (4.8-10.8)
[2020-10-09 17:34] LABS: POTASSIUM 4.6 mmol/L (3.5-5.1)
[2020-10-09 17:36] LABS: CALCIUM 8.4 mg/dL (8.3-10.5)
--- NOTE | 2020-10-09 17:56 | NUR ---
BNP 465, J. Gilbert, PRIOR AUTHORIZATION TECHNICIAN notified of critical value
--- NOTE | 2020-10-09 17:56 | NUR ---
ATTEMPTED PHONE CALL TO ELENI HAMPTON. LEFT VOICE MESSAGE
--- NOTE | 2020-10-09 18:50 | NUR ---
Report received from Lupe Ortega RN. Pt resting in bed, watching TV. Denies having any pain or discomfort.
--- NOTE | 2020-10-09 18:55 | NUR ---
Report received from Patricia Tejada RN. Resting in bed, awake and a/o x 3.
[2020-10-10 05:53] VITALS: BP 105/58
--- NOTE | 2020-10-10 06:50 | NUR ---
Report given to Patricia Sanches RN
[2020-10-10 07:14] LABS: PROTHROMBIN TIME 31.7 SECONDS (9.0-12.0)
--- NOTE | 2020-10-10 07:20 | NUR ---
Report recieved by MILLY Garza
--- NOTE | 2020-10-10 07:42 | NUR ---
Patient resting in chair. no pain or discomfort. Chair alarm on. Call light within reach.
[2020-10-10 16:03] VITALS: BP 123/75
--- NOTE | 2020-10-10 16:51 | NUR ---
Spoke with John Chapito Walls. She is wanting to know if John will be discharged on Thursday or Thursday next week so she can take off work to transport him. She also would like John to have home health at the [facility]. a nurse and PT. She thinks that would be best for him at this time. She states that John does not really want anyone in his home. but he does have [facility] and they are keeping him open for his discharge and are willing to accept after discharge. Looks as though he will need oxygen upon discharge to home. Especially for activity until plural effusions are improved.
--- NOTE | 2020-10-10 20:00 | NUR ---
Report received from Patriica ATKINS. Patient up in recliner. A/O x4. [place], Denies pain. Denies SOB. Occasional NPC "I have had a cough since sinus surgery". Assessment completed. HS medications and scheduled nebulizer tx given. Ready for bed. METAL COATER in to assist.
--- NOTE | 2020-10-10 23:55 | NUR ---
Resting quietly. No signs of pain or distress.
--- NOTE | 2020-10-11 05:08 | NUR ---
Rested well all shift. No pain. AM medications taken without difficulty. Bed alarm on. Call light in reach.
[2020-10-11 06:18] VITALS: BP 110/71
--- NOTE | 2020-10-11 07:00 | NUR ---
Report to Carmen ATKINS.
--- NOTE | 2020-10-11 07:50 | NUR ---
Pt sitting in recliner when assessment was completed. Pt denies pain. Pt states he gets SOB when he walks which concerns him. x1 assist when ambulating. No other concerns at this time.
[2020-10-11 15:22] VITALS: BP 96/62
--- NOTE | 2020-10-11 19:33 | NUR ---
Report received from Carmen ATKINS. Patient resting supine in bed with SCD's in place. A/O x4. Denies pain. Assessment completed. Uses I.S. and Pulls 2000 ML x10. Denies wants or needs. Bed alarm on. Call light in reach.
--- NOTE | 2020-10-12 00:47 | NUR ---
Resting quietly. No signs of pain or respiratory distress. Uses urinal at bedside. Bed alarm on. Call light in reach.
--- NOTE | 2020-10-12 05:30 | NUR ---
Awaken for AM medications and vital signs. States he slept well. Denies pain or needs at this time.
[2020-10-12 05:41] VITALS: BP 117/70
--- NOTE | 2020-10-12 07:00 | NUR ---
Report received from GAGE Barnett.
[2020-10-12 07:30] LABS: PROTHROMBIN TIME 34.4 SECONDS (9.0-12.0)
--- NOTE | 2020-10-12 08:00 | NUR ---
Pt laying in bed when assessment was completed. Pt denies pain at this time. Lungs sound clear. Ulcer to left ankle cleaned and redressed. No concerns at this time.
[2020-10-12 17:00] VITALS: BP 92/54
--- NOTE | 2020-10-12 20:00 | NUR ---
PATIENT SITTING UP IN RECLINER WATCHING TV, ALERT AND ORIENTED, ASSESSMENT PERFORMED, DRESSING CLEAN, DRY AND INTACT TO LEFT LATERAL ANKLE, PATIENT DENIES ANY PAIN, CALL LIGHT WITHIN REACH, CHAIR ALARM ACTIVATED, PATIENT DENIES ANY NEEDS/COMPLAINTS AT THIS TIME
[2020-10-13 05:52] VITALS: BP 118/68
--- NOTE | 2020-10-13 07:19 | NUR ---
Report given to Patricia-MILLY and Cece-RN, patient slept very well last night, is awake and refreshed, denies any pain or other discomfort, call light within reach, bed alarm on, side rails up x 2
--- NOTE | 2020-10-13 08:51 | NUR ---
Patient SBA with gait belt and walker from chair to bathroom. Completed ADLs with assistance setting up. Ambulated from bathroom to chair. No c/o pain or discomfort. Chair alarm on. Call light within reach.
[2020-10-13 18:09] VITALS: BP 93/61
--- NOTE | 2020-10-13 20:15 | NUR ---
Resting in bed, watching TV. Awake and a/o x 3. Denies having any pain or discomfort. Denies difficulty breathing. Pulse 64, respirations 18 and even. Spa02 97% on room air.
--- NOTE | 2020-10-14 05:00 | NUR ---
Q hourly checks done. Bed alarm set and call light with in reach. Opens eyes when spoken too. Denied having any pain or SOB. Occasional cough noted.
[2020-10-14 06:10] VITALS: BP 114/69
--- NOTE | 2020-10-14 07:34 | NUR ---
REPORT RECEIVED FROM ELZA ATKINS. PT SITTING UP IN CHAIR. NO NEEDS AT THIS TIME. CALL LIGHT IN REACH
--- NOTE | 2020-10-14 08:02 | NUR ---
PT SITTING UP IN CHAIR DOING I.S. PT ALERT AND ORIENTED AND PLEASANT. DENIES PAIN. DENIES SOB. DUODERM DRESSING TO LEFT LATERAL ANKLE. PT REPORTS IS STILL VERY TENDER. ESPECIALLY WHEN LAYING IN BED. HEEL PROTECTORS PROVIDED. PT DENIES NEED. UPDATED ON PLAN OF CARE. CALL LIGHT IN REACH
--- NOTE | 2020-10-14 15:38 | NUR ---
Received report at 1300; pt was sitting in chair & talking with his sister who was visiting. His sister had brought commercially-purchased fast food for the patient prior to my arrival. Reminded the patient of importance of low sodium intake to help with heart health & renal functioning. Pt has denied discomfort thus far when asked. Drsg. to L lateral lower leg. Amb. in halls approx. 250 ft, using FWW & gait belt, while monitoring SaO2; he had no distress and denied any SOA, & SaO2 92-95% room air. There were times that the pulse ox did not register to indicate his sat. with activity; however, as mentioned, John had no SOA nor dyspnea and the patient initiated conversational small talk. Pt returned to sitting in chair in room, as he preferred over lying down. Call light in reach and mobility alarm in use. Balbina Zapien LPN
[2020-10-14 17:08] VITALS: BP 110/61
--- NOTE | 2020-10-14 18:46 | NUR ---
Pt sitting up in chair. He was assisted to amb. in halls using FWW & gait belt; SaO2 remains 92%-95% room air. Denies discomfort. Call light in reach and chair alarm in use for patient safety. Report given to oncoming shift nurseSweetie. Balbina Zapien LPN
[2020-10-15 05:42] VITALS: BP 111/61
--- NOTE | 2020-10-15 07:02 | NUR ---
REPORT RECEIVED FROM KALEB ATKINS. PT RESTING IN BED AWAKE AT THIS TIME. NIGHT PULSE OXYGEN REMOVED AT THIS TIME. PT ALERT AND TALKATIVE. NO C/O PAIN OR DISCOMFORT AT THIS TIME. WINDOW SHADES OPENED PER REQUEST. NO CONCERNS NOTED AT THIS TIME.
--- NOTE | 2020-10-15 11:02 | NUR ---
spoke with John regarding his night ox reading and that he needed oxygen. He felt that sometimes at home prior to this that he needed oxygen. Contacted [facility] for anticipated discharge. Contacted [facility] for oxygen set up in John's Home. Faxed documents to [facility]. Spoke with Gwendolyn at [facility]. They are willing to resume home health care with John upon discharge. faxed documents and face to face
--- NOTE | 2020-10-15 15:36 | NUR ---
[facility] will drop off oxygen equipment today or tomorrow for discharge and will meet them at the house to set up oxygen
[2020-10-15 17:05] VITALS: BP 114/71
--- NOTE | 2020-10-15 18:48 | NUR ---
REPORT GIVEN TO KELSI ATKINS
[2020-10-16 05:56] VITALS: BP 105/56
--- NOTE | 2020-10-16 06:10 | NUR ---
PT HAD A PEACEFUL NIGHT. APPEARED TO BE SLEEPING WHEN CHECKED UPON. DENIES ANY DISCOMFORT OR PROBLEM THIS MORNING.
--- NOTE | 2020-10-16 07:07 | NUR ---
report given to Cristina ATKINS
--- NOTE | 2020-10-16 07:51 | NUR ---
Patient transfered from bed to chair with walker and gait belt. Non-skid socks in place. No c/o pain or discomfort. Sitting in chair visiting with staff. Chair alarm on. Call light within reach.
[2020-10-16 09:14] LABS: POTASSIUM 4.1 mmol/L (3.5-5.1)
[2020-10-16 09:15] LABS: CALCIUM 8.6 mg/dL (8.3-10.5)
[2020-10-16 09:17] LABS: PROTHROMBIN TIME 30.1 SECONDS (9.0-12.0)
[2020-10-16] MEDS ORDERED: FUROSEMIDE20 MG PO (15:44)
[2020-10-16] MEDS ORDERED: WARFARIN SODIUM1 MG PO (15:47)
--- NOTE | 2020-10-16 16:22 | NUR ---
Awaiting [facility] to deliver oxygen and set up home oxygen. [facility] will be here around 4:00. Estrella garnica [facility] notified of discharge.
[2020-10-16 16:29] VITALS: BP 120/57
--- NOTE | 2020-10-16 16:50 | NUR ---
Patient A&Ox4, no c/o pain or discomfort. Patient discharged to home with home health. Patient, patient's sister, Neice and nephew at bedside. Discharge instructions given. Questions answered. All personal belongs sent home with patient. Transported by w/c with O2 at 2L. Personal O2 tank sent with family. Transfered to [facility] with no incident. Steady gait noted.
== END 2020-10-16 16:50 | disposition home health service (06) | DRG 948 ==
LOC: MED/SURG 21:46
PROVIDERS: Nurse Practitioner Family; ADMIT Nurse Practitioner
DX: R53.81 Other malaise (principal); N17.9 Acute kidney failure, unspecified; I12.9 Hypertensive chronic kidney disease with stage 1 through stage 4 chronic kidney disease, or unspecified chronic kidney disease; I25.10 Atherosclerotic heart disease of native coronary artery without angina pectoris; I50.9 Heart failure, unspecified; I48.0 Paroxysmal atrial fibrillation; I73.9 Peripheral vascular disease, unspecified; J44.9 Chronic obstructive pulmonary disease, unspecified; L89.159 Pressure ulcer of sacral region, unspecified stage; L89.519 Pressure ulcer of right ankle, unspecified stage; M48.061 Spinal stenosis, lumbar region without neurogenic claudication; M10.9 Gout, unspecified; N18.9 Chronic kidney disease, unspecified; N40.0 Benign prostatic hyperplasia without lower urinary tract symptoms; E78.5 Hyperlipidemia, unspecified; Z79.01 Long term (current) use of anticoagulants; Z79.82 Long term (current) use of aspirin; Z95.0 Presence of cardiac pacemaker; Z95.820 Peripheral vascular angioplasty status with implants and grafts; Z86.16 Personal history of COVID-19; Z96.651 Presence of right artificial knee joint
CPT/HCPCS: A9270-GY; J0696